=== PATIENT | male | born 1995 | race Hispanic/Latino ===

== ENCOUNTER 2025-01-22 16:59 | Emergency (ER) | payer MEDICAID ==
[~2025-01-22] VITALS: Ht 162.6 cm; Wt 110.5 kg
[2025-01-22] MEDS ORDERED: LORazepam 1 MG TAB PO ONE (17:30)
[2025-01-22 18:31] VITALS: BP 167/85
== END 2025-01-22 18:30 | disposition home or self-care (01) ==
LOC: ED 16:59
DX: F14.929 Cocaine use, unspecified with intoxication, unspecified (principal)
CPT/HCPCS: 99283; A9270-GY